=== PATIENT | male | born 1965 | race Caucasian/White ===

== ENCOUNTER → 2019-01-06 | Outpatient (CLI) | payer OTHER ==
--- NOTE | 2019-01-10 09:40 | PE ---
Nuclear medicine PET/CT HISTORY: Lung carcinoma, subsequent Patient received 10.8 mCi F-18 FDG intravenously in delayed scanning was performed from the skull bas e to the mid thighs. Localization and attenuation correction CT scan was performed. Correlation to prior nuclear medicine PET/CT 08/08/2018 from outside institution Neck and chest: There is no evident cervical, supraclavicular, mediastinal, axillary adenopathy. Righ t lung mass extends from the right hilum to the pleural surface and shows hypermetabolic uptake perip herally in a similar distribution to prior exam, SUV 4.3 as compared to prior when SUV was 10. There is increased AP diameter of approximately 6.6 cm as compared to prior exam 6.2 cm. There is some asso ciated calcification in the right hilar region as well as in the right lung mass. No pleural or peric ardial effusion. Parenchymal bands are noted, subpleural scarring suspected along the right chest wal l inferior to the mass as on prior exam. There is volume loss in the right hemithorax. Apical loculat ed effusion suspected on the right is stable. ABDOMEN: No evident liver mass or suspicious hypermetabolic uptake. No retroperitoneal adenopathy. No adrenal mass. Small umbilical hernia contains fat. Prostate is enlarged. No pelvic adenopathy. Osseous structures are stable, no suspicious hypermetabolic uptake. IMPRESSION: There has been some progression in the size of the lung mass.
== END | disposition home or self-care (01) ==
LOC: RADPETMAIN 11:29
PROVIDERS: ATTEND Internal Medicine Hematology & Oncology
DX: C34.81 Malignant neoplasm of overlapping sites of right bronchus and lung (principal); R91.8 Other nonspecific abnormal finding of lung field
CPT/HCPCS: 78815; A9552

== ENCOUNTER → 2020-09-19 | Outpatient (CLI) | payer MEDICARE, OTHER ==
--- NOTE | 2020-09-26 13:05 | PE ---
EXAMINATION TYPE: PET CT fusion skull to thigh DATE OF EXAM: 09/19/2020 COMPARISON: CT abdomen and pelvis 08/09/2015 Prior PET/CT: 01/06/2019 HISTORY: Lung cancer TECHNIQUE: Following the intravenous administration of 12.92 mCi of F-18 FDG, whole body images are performed from the skull base to the midthigh. Images are reviewed on the computer in the coronal, a xial, and sagittal planes. Reconstructed rotating images are created on independent workstation and reviewed on the computer. A localization and attenuation correction CT is performed in conjunction with the PET scan. DLP: 407.65 mGycm SCAN: Subsequent Blood glucose: 90 mg/dL Average Mediastinum SUV: 1.73 Average Liver SUV: 1.96 FINDINGS: NECK: There is vague increased signal within the right tonsillar pillar with an SUV value 2.23. Infl ammatory change could be considered. There is intense uptake within the vocal cord level posterior larynx. This has an SUV value of 5.5 to . This could be related to phonation. However, direct visualization is recommended. Attention posteri or right vocal cord region. THORAX: There is intense activity within the mass within the right lung field. This has an SUV value 10.21. Image 88. The inferior portion of this mass extends towards the diaphragm and has an SUV value of 9.43. Image 116. There is a intense uptake within a left infrahilar lymph node. Series 103. This has an SUV value of 5 .71 image 102. A right infrahilar focus radiotracer has an SUV value of 6.24. Image 119. There is intense activity within the posterior cardiac mass within the right lower lung field. Image 111. This has an SUV value of 4.99. Smaller masses adjacent to the right diaphragm, image 126, have S UV values of 5.96 anteriorly and more posterior laterally 5.63. There is a left lung nodule measuring 7.24 SUV within the anterior lingula. Image 127. ABDOMEN: No abnormal uptake PELVIS: No abnormal uptake OSSEOUS STRUCTURES: No abnormal uptake LOCALIZATION CT: The thyroid is visualized and is normal. There is fluid within the superior right th orax. There is shift of the mediastinum to the right postsurgical changes. The adrenal glands appear normal. No abnormal uptake or enlargement is evident. COMPARISON: Small amount of radiotracer is present adjacent to the mediastinum on the right previous examination. The uptake within the mass, the nodules, and infrahilar adenopathy is new. IMPRESSION: 1. Recurrent intense uptake within the right lung mass compatible with recurrence. 2. Multiple new nodules in infrahilar adenopathy with uptake compatible with metastatic disease. 3. Some intense uptake in the posterior right vocal cord region could be related to formation or neop lasm. 4. Mild uptake within the right tonsillar pillar more likely related to inflammatory change. Direct v isualization can be performed.
== END | disposition home or self-care (01) ==
LOC: RADPETMAIN 09:51
PROVIDERS: ATTEND Internal Medicine Hematology & Oncology
DX: C34.91 Malignant neoplasm of unspecified part of right bronchus or lung (principal); R91.8 Other nonspecific abnormal finding of lung field; R59.0 Localized enlarged lymph nodes
CPT/HCPCS: 78815; A9552

== ENCOUNTER → 2020-09-20 | Outpatient (CLI) | payer MEDICARE, OTHER ==
--- NOTE | 2020-09-20 11:19 | MR ---
EXAMINATION TYPE: MR brain wo/w con DATE OF EXAM: 09/20/2020 COMPARISON: None HISTORY: Lung cancer, evaluate for metastatic disease. TECHNIQUE: Multiplanar, multisequence images of the brain and brainstem is performed without and with IV contras t, utilizing 7.5 mL intravenous Gadavist . FINDINGS bone The ventricles, basal cisterns and sulci over the convexities are mildly prominent consistent with mi ld atrophy. There is mild abnormal increased signal intensity in the white matter both cerebral hemispheres and i n the brainstem consistent with chronic ischemic demyelination. Based on diffusion-weighted imaging, there is no acute ischemic event. Following contrast administration there is no pathological enhancement throughout the brain parenchym a. The posterior fossa, including the brainstem, fourth ventricle and cerebellar pontine angles appear n ormal The intraorbital contents appear normal and symmetric. T2-weighted images midline structures craniovertebral junction relationships are normal. IMPRESSION: No evidence of metastatic disease to the brain. Chronic changes as described above.
== END | disposition home or self-care (01) ==
LOC: RADMRIMAIN 09:50
PROVIDERS: ATTEND Internal Medicine Hematology & Oncology
DX: C34.91 Malignant neoplasm of unspecified part of right bronchus or lung (principal)
CPT/HCPCS: 70553; A9585

== ENCOUNTER 2020-10-29 15:49 | Inpatient (IN) | payer MEDICARE, OTHER ==
[2020-10-29] MEDS ORDERED: CEFEPIME 2 GM in SODIUM CHLORIDE 0.9% 100 ML IVPB STA (16:15)
[2020-10-29] MEDS ORDERED: VANCOMYCIN IV PER PHARMACY 1 EACH MISC MISCELLANE PRN (16:15)
--- NOTE | 2020-10-29 16:27 | ED ---
General Adult HPI - General Chief complaint: Fever Stated complaint: fever-sent by [facility] Time Seen by Provider: 10/29/20 15:50 Source: patient, RN notes reviewed, old records reviewed Mode of arrival: ambulatory Limitations: no limitations - History of Present Illness Initial comments: This is a 55-year-old male presents to the emergency department with a past medical history significant of lung cancer according to the oncologist he's had a reoccurrence and stage IV lung cancer currently. Patient is getting chemotherapy and has been having fevers for the last 2 days so the oncologist like the patient admitted and started on antibiotics. Patient states he feels no different than he has been feeling. Patient denies any significant cough. Patient denies any difficulty breathing shortness of breath per patient denies any chest pain palpitations. Patient denies any abdominal pain patient denies nausea vomiting diarrhea per patient denies any dysuria hematuria urinary frequency. Patient denies any skin lesions rashes or areas of fluctuance. - Related Data Home Medications Medication Instructions Recorded Confirmed Albuterol Sulfate [Ventolin HFA] 1 puff INHALATION RT-Q4H PRN 10/29/20 10/29/20 Fluticasone Propionate [Flovent 1 puff INHALATION RT-BID 10/29/20 10/29/20 Hfa 220 mcg] Allergies Allergy/AdvReac Type Severity Reaction Status Date / Time No Known Allergies Allergy Verified 10/29/20 17:28 Review of Systems ROS Statement: Those systems with pertinent positive or pertinent negative responses have been documented in the HPI. ROS Other: All systems not noted in ROS Statement are negative. Past Medical History Past Medical History: Cancer Additional Past Medical History / Comment(s): lung cancer History of Any Multi-Drug Resistant Organisms: None Reported Past Surgical History: Hernia Repair Additional Past Surgical History / Comment(s): Inguinal Hernia Past Anesthesia/Blood Transfusion Reactions: No Reported Reaction Past Psychological History: No Psychological Hx Reported Smoking Status: Current every day smoker Past Alcohol Use History: Occasional Past Drug Use History: None Reported - Past Family History Father Family Medical History: Unable to Obtain Additional Family Medical History / Comment(s): pt was adopted, family history unknown General Exam - General Exam Comments Initial Comments: GENERAL: Patient is well-developed and well-nourished. Patient is nontoxic and well- hydrated and is in no acute distress. ENT: Neck is soft and supple. No significant lymphadenopathy is noted. Oropharynx is clear. Moist mucous membranes. Neck has full range of motion without eliciting any pain. EYES: The sclera were anicteric and conjunctiva were pink and moist. Extraocular movements were intact and pupils were equal round and reactive to light. Eyelids were unremarkable. PULMONARY: Unlabored respirations. Good breath sounds bilaterally. No audible rales rhonchi or wheezing was noted. CARDIOVASCULAR: There is a regular rate and rhythm without any murmurs gallops or rubs. ABDOMEN: Soft and nontender with normal bowel sounds. SKIN: Skin is clear with no lesions or rashes and otherwise unremarkable. NEUROLOGIC: Patient is alert and oriented x3. Cranial nerves II through XII are grossly intact. Motor and sensory are also intact. Normal speech, volume and content. Symmetrical smile. MUSCULOSKELETAL: Normal extremities with adequate strength and full range of motion. No lower extremity swelling or edema. No calf tenderness. LYMPHATICS: No significant lymphadenopathy is noted PSYCHIATRIC: Normal psychiatric evaluation. Limitations: no limitations Course Vital Signs 10/29/20 15:51 Temperature 97.3 F L Pulse Rate 110 H Respiratory 20 Rate Blood Pressure 117/76 O2 Sat by Pulse 100 Oximetry Medical Decision Making - Medical Decision Making EKG shows sinus tachycardia with PVCs at 109 bpm TN interval is on a 34 QRS is 84 Q-T intervals 328 QTC is 441. EKG shows no ST segment elevation or depression. Chest x-ray shows findings on the right side related to partial pneumonectomy [facility] the patient I consulted oncology. Patient was started on vancomycin cefepime - Lab Data Result diagrams: 10/29/20 16:38 10/29/20 16:38 Lab Results 10/29/20 10/29/20 10/29/20 Range/Units 16:38 16:38 16:38 WBC 0.8 L* (3.8-10.6) k/uL RBC 4.09 L (4.30-5.90) m/uL Hgb 10.9 L (13.0-17.5) gm/dL Hct 31.8 L (39.0-53.0) % MCV 77.7 L (80.0-100.0) fL MCH 26.6 (25.0-35.0) pg MCHC 34.2 (31.0-37.0) g/dL RDW 17.0 H (11.5-15.5) % Plt Count 154 (150-450) k/uL MPV 7.7 Differential Comment Manual Slide Review Performed Anisocytosis Slight Microcytosis Slight PT 10.3 (9.0-12.0) sec INR 1.0 (<1.2) APTT 24.4 (22.0-30.0) sec Sodium 136 L (137-145) mmol/L Potassium 4.7 (3.5-5.1) mmol/L Chloride 96 L (98-107) mmol/L Carbon Dioxide 31 H (22-30) mmol/L Anion Gap 9 mmol/L BUN 15 (9-20) mg/dL Creatinine 1.32 H (0.66-1.25) mg/dL Est GFR (CKD-EPI)AfAm 71 (>60 ml/min/1.73 sqM) Est GFR (CKD-EPI)NonAf 61 (>60 ml/min/1.73 sqM) Glucose 197 H (74-99) mg/dL Plasma Lactic Acid Leon (0.7-2.0) mmol/L Calcium 9.3 (8.4-10.2) mg/dL Total Bilirubin 0.6 (0.2-1.3) mg/dL AST 15 L (17-59) U/L ALT 9 (4-49) U/L Alkaline Phosphatase 73 (38-126) U/L Total Protein 6.6 (6.3-8.2) g/dL Albumin 3.6 (3.5-5.0) g/dL 10/29/20 Range/Units 16:38 WBC (3.8-10.6) k/uL RBC (4.30-5.90) m/uL Hgb (13.0-17.5) gm/dL Hct (39.0-53.0) % MCV (80.0-100.0) fL MCH (25.0-35.0) pg MCHC (31.0-37.0) g/dL RDW (11.5-15.5) % Plt Count (150-450) k/uL MPV Differential Comment Manual Slide Review Anisocytosis Microcytosis PT (9.0-12.0) sec INR (<1.2) APTT (22.0-30.0) sec Sodium (137-145) mmol/L Potassium (3.5-5.1) mmol/L Chloride (98-107) mmol/L Carbon Dioxide (22-30) mmol/L Anion Gap mmol/L BUN (9-20) mg/dL Creatinine (0.66-1.25) mg/dL Est GFR (CKD-EPI)AfAm (>60 ml/min/1.73 sqM) Est GFR (CKD-EPI)NonAf (>60 ml/min/1.73 sqM) Glucose (74-99) mg/dL Plasma Lactic Acid Leon 2.4 H* (0.7-2.0) mmol/L Calcium (8.4-10.2) mg/dL Total Bilirubin (0.2-1.3) mg/dL AST (17-59) U/L ALT (4-49) U/L Alkaline Phosphatase (38-126) U/L Total Protein (6.3-8.2) g/dL Albumin (3.5-5.0) g/dL Critical Care Time Critical Care Time: Yes Total Critical Care Time: 35 Disposition Clinical Impression: Neutropenic fever, Lung cancer Disposition: ADMITTED IP TO THIS HOSP Referrals: Bright Martínez MD [Primary Care Provider] - 1-2 days Time of Disposition: 17:58
[2020-10-29] MEDS: SODIUM CHLORIDE 0.9% 500 ML 500 ML IV SCH ×2 (16:58→17:30)
[2020-10-29] MEDS ORDERED: VANCOMYCIN 1,500 MG in SODIUM CHLORIDE 0.9% 250 ML IVPB ONE (17:00)
[2020-10-29 17:06] LABS: Partial Thromboplastin Time 24.4 sec (22.0-30.0); Prothrombin Time 10.3 sec (9.0-12.0)
[2020-10-29 17:08] LABS: Albumin 3.6 g/dL (3.5-5.0); Calcium 9.3 mg/dL (8.4-10.2); Potassium 4.7 mmol/L (3.5-5.1); Total Bilirubin 0.6 mg/dL (0.2-1.3); Total Protein 6.6 g/dL (6.3-8.2)
[2020-10-29 17:19] LABS: Anisocytosis Slight; HCT 31.8 % (39.0-53.0); HGB 10.9 gm/dL (13.0-17.5); MCH 26.6 pg (25.0-35.0); MCHC 34.2 g/dL (31.0-37.0); MCV 77.7 fL (80.0-100.0); Mean Platelet Volume 7.7; Microcytosis Slight; Platelet Count 154 k/uL (150-450); RBC 4.09 m/uL (4.30-5.90)
[2020-10-29 17:25] LABS: WBC 0.8 k/uL (3.8-10.6)
--- NOTE | 2020-10-29 17:30 | XR ---
EXAMINATION TYPE: XR chest 1V portable DATE OF EXAM: 10/29/2020 COMPARISON: 08/09/2015 HISTORY: Pneumonia. Short of breath. TECHNIQUE: Single view FINDINGS: Heart and mediastinum are deviated to the right side. There is extensive opacification righ t hemithorax. There is some nodular infiltrate left lower lobe. There is no definite pleural fluid. IMPRESSION: Volume loss on the right side could relate to partial pneumonectomy with extensive pleura l thickening and consolidation. There is some new nodular infiltrate left lower lobe. Recurrent tumor is possible.
[2020-10-29] MEDS ORDERED: SODIUM CHLORIDE 0.9% 1,000 ML IV ONE (17:59)
[2020-10-29 19:23] LABS: Appearance,Urine Clear (Clear); Bilirubin,Urine Negative (Negative); Blood,Urine Negative (Negative); Color,Urine Yellow; Glucose,Urine (UA) 3+ (Negative); Hyaline Casts,Urine 44 /lpf (0-2); Ketones,Urine Negative (Negative); Leukocyte Esterase,Urine Negative (Negative); Mucus,Urine Occasional /hpf; Nitrite,Urine Negative (Negative); Protein,Urine 1+ (Negative); RBC,Urine <1 /hpf (0-5); Squamous Epithelial Cell,Urine <1 /hpf (0-4); WBC,Urine 2 /hpf (0-5)
[2020-10-30] MEDS: CEFEPIME 2 GM in SODIUM CHLORIDE 0.9% 100 ML IVPB SCH ×3 (00:39→16:20)
[2020-10-30] MEDS: VANCOMYCIN 1,250 MG in SODIUM CHLORIDE 0.9% 250 ML IVPB SCH ×2 (05:02→17:01)
[2020-10-30 07:43] LABS: African American GFR (CKD) 88 (>60 ml/min/1.73 sqM); Anion Gap 9 mmol/L; Blood Urea Nitrogen 11 mg/dL (9-20); Calcium 8.3 mg/dL (8.4-10.2); Carbon Dioxide 28 mmol/L (22-30); Chloride 101 mmol/L (98-107); Glucose 117 mg/dL (74-99); Non-African American GFR(CKD) 76 (>60 ml/min/1.73 sqM); Potassium 4.5 mmol/L (3.5-5.1); Sodium 138 mmol/L (137-145)
[2020-10-30] MEDS: FILGRASTIM-SNDZ 480 MCG/0.8 ML SYRINGE SQ SCH (10:16)
[2020-10-30] MEDS: IPRATROPIUM-ALBUTEROL 3 ML NEB INHALATION SCH ×3 (11:38→20:28)
[2020-10-30] MEDS: guaiFENesin 600 MG TABLET.ER PO SCH ×3 (11:43→20:10)
[2020-10-30] MEDS: ENOXAPARIN 40 MG/0.4 ML SYRINGE SQ SCH (11:43)
[2020-10-30] MEDS ORDERED: ACETAMINOPHEN TAB 325 MG TAB PO PRN (12:43)
--- NOTE | 2020-10-30 15:48 | P.CONS ---
History of Present Illness - Reason for Consult Consult date: 10/30/20 Neutropenic fever Requesting physician: Antelmo Louis - Chief Complaint Fever, tachycardia, on chemotherapy for lung cancer - History of Present Illness Mr. Skelton is a pleasant pt of Dr. August, initially seen in consult at [facility] on 08/08/15 when he presented with mid chest pain, worsened with inspiration, progressive over 2 day, SOB on exertion since late 05/04. Chest CT revealed a large mass occupying about the upper 2/3 of the right lung field. He had a bronchoscopic biopsy, positive for malignancy. CT head was negative. Staging PET revealed uptake in the mass, but not elsewhere. The pathology, after consultation at the [facility], was read as small cell llung cancer. He was seen for his 1st OV on 08/21/15. He was started on METAL BONDING HELPER 16 and Cisplatin for 2 cycles for cytoreduction then addition of XRT. Completed 4 cycles of chemo by 11/06/15 and RT around 10/30/15. Treatment f/u CT showed a very good partial radiologic response. Prophylactic cranial irradiation 04/06/16. He was seen back at his own request on 04/08/16 as he had notice a tender lump under his rt nipple 2 days prior. US guided biopsy on 04/13/16, revealing benign gynocomastia. He completed PCI on 04/19/16. He missed appts after 05/05 due to insurance issues. He re-established f/u in 10/04. CT 07/08 showed possible increase in size of the RUL opacity. He was seen by Rad Onc and PET ordered. This showed peripheral rim uptake with central necrosis, with uptake less then prior study. It could not be determined if this represented progression vs scarring with breakdown and residual inflammation. He was thus continued on observation. PET 01/05 showed slight increase in size of the RUL opacity, but again peripheral uptake only, with actually decreased SUV. Repeat CT scan 04/07, which was personally reviewed by Radiation Oncology and was felt to show minimal, if any, change. Continued observation was recommended. Did well until scan 10/07 showed development of a cavitary lesion in the right upper lobe with an air-fluid level. Scans were reviewed with Radiation Oncology, and Pulmonary medicine. It was felt that this most likely represented an abscess with cavity due to breakdown of previously treated tissue. He was treated with antibiotics for several weeks. CT 08/10 appeared to show progression, with increasing density in the right mid to upper lung, as well as nodules in both lungs. 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 PET scan showed uptake in the right lung mass, as well as infrahilar lymph nodes, right lung and left lung nodules. There was also low level uptake in the right vocal cord and oropharynx which was felt to be nonspecific. Started METAL BONDING HELPER-16, carboplatin, and tecentriq on 10/14/20 and is status post 1 cycle. He was in ofc for ff/u and reported at least 3 episodes of fever with chills in the previous 24 hours, as high as 101.5 on 10/28/20. He tachycardic with an ANC of 900. Sent to hospital for neutropenic fever. When seen today no fever since admit, (RN did report 100.9F later in the morning), no oral irritation, productive cough, chest pain, N,V, diarrhea, constipation, he can tolerate oral intake, no swelling in legs, pain or unusual energy changes. Review of Systems 14 point review of systems is negative except as stated in HPI Past Medical History Past Medical History: Cancer Additional Past Medical History / Comment(s): lung cancer History of Any Multi-Drug Resistant Organisms: None Reported Past Surgical History: Hernia Repair Additional Past Surgical History / Comment(s): Inguinal Hernia Past Anesthesia/Blood Transfusion Reactions: No Reported Reaction Past Psychological History: No Psychological Hx Reported Smoking Status: Current every day smoker Past Alcohol Use History: Occasional Past Drug Use History: None Reported - Past Family History Father Family Medical History: Unable to Obtain Additional Family Medical History / Comment(s): pt was adopted, family history unknown Medications and Allergies Home Medications Medication Instructions Recorded Confirmed Type Albuterol Sulfate [Ventolin HFA] 1 puff INHALATION RT-Q4H PRN 10/29/20 10/29/20 History Fluticasone Propionate [Flovent 1 puff INHALATION RT-BID 10/29/20 10/29/20 History Hfa 220 mcg] Allergies Allergy/AdvReac Type Severity Reaction Status Date / Time No Known Allergies Allergy Verified 10/29/20 17:28 Physical Exam Vitals: Vital Signs Temp Pulse Pulse Resp BP BP Pulse Ox 10/30/20 08:00 106 H 18 10/30/20 05:02 98.7 F 10/30/20 04:00 100.1 F H 108 H 18 104/64 98 10/29/20 20:00 110 H 18 10/29/20 18:18 99.6 F 130 H 18 105/70 94 L 10/29/20 18:09 97.7 F 106 H 16 122/79 98 10/29/20 18:00 16 10/29/20 15:51 97.3 F L 110 H 20 117/76 100 Intake and Output 10/29/20 10/30/20 10/30/20 22:59 06:59 14:59 Intake Total 240 700 Balance 240 700 Intake: Intake, IV Titration 700 Amount Cefepime 2 gm In Sodium 100 Chloride 0.9% 100 ml @ 200 mls/hr IVPB ONCE STA Rx#:[id number] Sodium Chloride 0.9% 1, 350 000 ml @ 50 mls/hr IV . Q20H ONE Rx#:[id number] Vancomycin 1,500 mg In 250 Sodium Chloride 0.9% 250 ml @ 125 mls/hr IVPB ONCE ONE Rx#:[id number] Oral 240 Other: Voiding Method Toilet Toilet Urinal Urinal # Voids 4 Weight 78.018 kg - Constitutional General appearance: average body habitus, cooperative, no acute distress - EENT Eyes: anicteric sclerae, EOMI ENT: hearing grossly normal, normal oropharynx - Neck Neck: no lymphadenopathy - Respiratory Respiratory: bilateral: CTA - Cardiovascular Rhythm: other (Tachycardia, regular rhythm) Heart sounds: normal: S1, S2 Abnormal Heart Sounds: no systolic murmur, no diastolic murmur, no rub, no S3 Gallop, no S4 Gallop, no click, no other - Gastrointestinal General gastrointestinal: no absent bowel sounds, no decreased bowel sounds, no distended, no hepatomegaly, no hyperactive bowel sounds, normal bowel sounds, no organomegaly, no rigid, no scaphoid, soft, no splenomegaly, no tenderness, no umbilical hernia, no ventral hernia - Integumentary Integumentary: normal - Neurologic Neurologic: CNII-XII intact - Musculoskeletal Musculoskeletal: strength equal bilaterally - Psychiatric Psychiatric: A&O x's 3, appropriate affect, intact judgment & insight Results CBC & Chem 7: 10/29/20 16:38 05/13/21 06:56 Labs: Abnormal Lab Results - Last 24 Hours (Table) 10/29/20 10/29/20 10/29/20 Range/Units 16:38 16:38 16:38 WBC 0.8 L* (3.8-10.6) k/uL RBC 4.09 L (4.30-5.90) m/uL Hgb 10.9 L (13.0-17.5) gm/dL Hct 31.8 L (39.0-53.0) % MCV 77.7 L (80.0-100.0) fL RDW 17.0 H (11.5-15.5) % Sodium 136 L (137-145) mmol/L Chloride 96 L (98-107) mmol/L Carbon Dioxide 31 H (22-30) mmol/L Creatinine 1.32 H (0.66-1.25) mg/dL Glucose 197 H (74-99) mg/dL Plasma Lactic Acid Leon (0.7-2.0) mmol/L Calcium (8.4-10.2) mg/dL AST 15 L (17-59) U/L Urine Protein 1+ H (Negative) Urine Glucose (UA) 3+ H (Negative) Hyaline Casts 44 H (0-2) /lpf Urine Mucus Occasional H (None) /hpf 10/29/20 10/30/20 Range/Units 16:38 06:56 WBC (3.8-10.6) k/uL RBC (4.30-5.90) m/uL Hgb (13.0-17.5) gm/dL Hct (39.0-53.0) % MCV (80.0-100.0) fL RDW (11.5-15.5) % Sodium (137-145) mmol/L Chloride (98-107) mmol/L Carbon Dioxide (22-30) mmol/L Creatinine (0.66-1.25) mg/dL Glucose 117 H (74-99) mg/dL Plasma Lactic Acid Leon 2.4 H* (0.7-2.0) mmol/L Calcium 8.3 L (8.4-10.2) mg/dL AST (17-59) U/L Urine Protein (Negative) Urine Glucose (UA) (Negative) Hyaline Casts (0-2) /lpf Urine Mucus (None) /hpf Chest x-ray: report reviewed (Nodular infiltrate in the left lower lobe) Assessment and Plan (1) Neutropenic fever Narrative/Plan: Pancultures ordered, empiric antibiotics started. GCSF started. IV fluids, diet as tolerated unless abd pain GI/DVT prophylaxis Temp monitoring Pt told cultures have to result and no fever for >24 hours before he can be discharged. G-CSF will be added to patient's treatment regimen Current Visit: Yes Status: Acute Priority: High Code(s): D70.9 - NEUTROPENIA, UNSPECIFIED; R50.81 - FEVER PRESENTING WITH CONDITIONS CLASSIFIED ELSEWHERE SNOMED Code(s): 130529688 Plan: Doctor attests: I performed a history and physical examination of this patient, developed impression and plan of care. Discussed with dictator. I agree with dictators note, documented as a scribe.
[2020-10-30] MEDS ORDERED: MAGNESIUM HYDROXIDE 2,400 MG/10 ML CUP PO PRN (15:49)
[2020-10-30] MEDS: PANTOPRAZOLE 40 MG/10 ML VIAL IVP SCH (17:01)
[2020-10-30] MEDS: SALT AND SODA MOUTHWASH 1,000 ML PO SCH ×2 (17:02→20:12)
--- NOTE | 2020-10-30 17:49 | P.HPIM ---
History of Present Illness H&P Date: 10/30/20 Chief Complaint: Fever History of presenting complaint: This is a pleasant 55-year-old patient of Dr. Mak Martínez. Also being followed by oncologist Dr. August. As per oncology notes: Mr. Skelton is a pleasant pt of Dr. August, initially seen in consult at [facility] on 08/08/15 when he presented with mid chest pain, worsened with inspiration, progressive over 2 day, SOB on exertion since late 05/04. Chest CT revealed a large mass occupying about the upper 2/3 of the right lung field. He had a bronchoscopic biopsy, positive for malignancy. CT head was negative. Staging PET revealed uptake in the mass, but not elsewhere. The pathology, after consultation at the [facility], was read as small cell llung cancer. He was seen for his 1st OV on 08/21/15. He was started on BICYCLE TECHNICIAN 16 and Cisplatin for 2 cycles for cytoreduction then addition of XRT. Completed 4 cycles of chemo by 11/06/15 and RT around 10/30/15. Treatment f/u CT showed a very good partial radiologic response. Prophylactic cranial irradiation 04/06/16. He was seen back at his own request on 04/08/16 as he had notice a tender lump under his rt nipple 2 days prior. US guided biopsy on 04/13/16, revealing benign gynocomastia. He completed PCI on 04/19/16. He missed appts after 05/05 due to insurance issues. He re-established f/u in 10/04. CT 07/08 showed possible increase in size of the RUL opacity. He was seen by Rad Onc and PET ordered. This showed peripheral rim uptake with central necrosis, with uptake less then prior study. It could not be determined if this represented progression vs scarring with breakdown and residual inflammation. He was thus continued on observation. PET 01/05 showed slight increase in size of the RUL opacity, but again peripheral uptake only, with actually decreased SUV. Repeat CT scan 04/07, which was personally reviewed by Radiation Oncology and was felt to show minimal, if any, change. Continued observation was recommended. Did well until scan 10/07 showed development of a cavitary lesion in the right upper lobe with an air-fluid level. Scans were reviewed with Radiation Oncology, and Pulmonary medicine. It was felt that this most likely represented an abscess with cavity due to breakdown of previously treated tissue. He was treated with antibiotics for several we eks. CT 08/10 appeared to show progression, with increasing density in the right mid to upper lung, as well as nodules in both lungs. 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 PET scan showed uptake in the right lung mass, as well as i nfrahilar lymph nodes, right lung and left lung nodules. There was also low level uptake in the right vocal cord and oropharynx which was felt to be nonspecific. Started BICYCLE TECHNICIAN-16, carboplatin, and tecentriq on 10/14/20 and is status post 1 cycle. He was in office for ff/u and reported at least 3 episodes of fever with chills in the previous 24 hours, as high as 101.5 on 10/28/20. He tachycardic with an ANC of 900. Sent to hospital for neutropenic fever. Additionally: Patient has a cough. In addition sputum. Appetite is okay. No chills. Bowel movement frequency variable. Has been having wheezing. Review of systems: GEN.: Fever, tired EYES: None HEENT: None NECK: None RESPIRATORY: [As above CARDIOVASCULAR: None GASTROINTESTINAL: None GENITOURINARY: None MUSCULOSKELETAL: None LYMPHATICS: None HEMATOLOGICAL: None PSYCHIATRY: None NEUROLOGICAL: None Past medical history to include: Lung cancer, nicotine dependent Social history: Lives alone. 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 No alcohol. Family history: Patient is adopted Physical examination: VITAL SIGNS: 100.1, 108, 18, 104/64, 98% room air GENERAL: BMI 25.4, laying in bed, bit tired. EYES: Pupils equal. Conjunctiva normal. HEENT: External appearance of nose and ears normal, oral cavity grossly normal. NECK: JVD not raised; masses not palpable. HEART: First and second heart sounds are normal; no edema. LUNGS: Respiratory rate increased; decreased breath sounds with expiratory wheezing. ABDOMEN: Soft, nontender, liver spleen not palpable, no masses palpable. PSYCH: Alert and oriented x3; mood and affect normal. NEUROLOGICAL: Cranial nerves grossly intact; no facial asymmetry, power and sensation grossly intact. LYMPHATICS: No lymph nodes palpable in the axilla and neck INVESTIGATIONS, reviewed in the clinical context: WBC 0.8 hemoglobin 10.9 platelets 1544.7 creatinine 1.3 to Lactic acid 2.4 UA negative for nitrites and leukoesterase Coronavirus [PCR]-not detected EKG tracing personally reviewed by me-normal sinus rhythm, sinus tachycardia, PVC Chest x-ray film personally reviewed by me-trachea port to the right. Prerenal thickening consolidation. 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 Inhaled steroids -Bicytopenia from chemotherapy Started on G-CSF. Follow labs -Acute kidney injury, likely from ATN IV fluids. Follow BMP Care was discussed with the patient. Oncology consulted. Increase IV fluids. Antibiotics include cefepime and vancomycin. Consult pulmonary. Past Medical History Past Medical History: Cancer Additional Past Medical History / Comment(s): lung cancer History of Any Multi-Drug Resistant Organisms: None Reported Past Surgical History: Hernia Repair Additional Past Surgical History / Comment(s): Inguinal Hernia Past Anesthesia/Blood Transfusion Reactions: No Reported Reaction Past Psychological History: No Psychological Hx Reported Smoking Status: Current every day smoker Past Alcohol Use History: Occasional Past Drug Use History: None Reported - Past Family History Father Family Medical History: Unable to Obtain Additional Family Medical History / Comment(s): pt was adopted, family history unknown Medications and Allergies Home Medications Medication Instructions Recorded Confirmed Type Albuterol Sulfate [Ventolin HFA] 1 puff INHALATION RT-Q4H PRN 10/29/20 10/29/20 History Fluticasone Propionate [Flovent 1 puff INHALATION RT-BID 10/29/20 10/29/20 History Hfa 220 mcg] Allergies Allergy/AdvReac Type Severity Reaction Status Date / Time No Known Allergies Allergy Verified 10/29/20 17:28 Physical Exam Vitals: Vital Signs Temp Pulse Pulse Resp BP BP Pulse Ox 10/30/20 08:00 106 H 18 10/30/20 05:02 98.7 F 10/30/20 04:00 100.1 F H 108 H 18 104/64 98 10/29/20 20:00 110 H 18 10/29/20 18:18 99.6 F 130 H 18 105/70 94 L 10/29/20 18:09 97.7 F 106 H 16 122/79 98 10/29/20 18:00 16 10/29/20 15:51 97.3 F L 110 H 20 117/76 100 Intake and Output 10/29/20 10/30/20 10/30/20 22:59 06:59 14:59 Intake Total 240 700 Balance 240 700 Intake: Intake, IV Titration 700 Amount Cefepime 2 gm In Sodium 100 Chloride 0.9% 100 ml @ 200 mls/hr IVPB ONCE STA Rx#:[id number] Sodium Chloride 0.9% 1, 350 000 ml @ 50 mls/hr IV . Q20H ONE Rx#:[id number] Vancomycin 1,500 mg In 250 Sodium Chloride 0.9% 250 ml @ 125 mls/hr IVPB ONCE ONE Rx#:[id number] Oral 240 Other: Voiding Method Toilet Toilet Urinal Urinal # Voids 4 Weight 78.018 kg Results CBC & Chem 7: 10/29/20 16:38 10/30/20 06:56 Labs: Abnormal Lab Results - Last 24 Hours (Table) 10/29/20 10/29/20 10/29/20 Range/Units 16:38 16:38 16:38 WBC 0.8 L* (3.8-10.6) k/uL RBC 4.09 L (4.30-5.90) m/uL Hgb 10.9 L (13.0-17.5) gm/dL Hct 31.8 L (39.0-53.0) % MCV 77.7 L (80.0-100.0) fL RDW 17.0 H (11.5-15.5) % Sodium 136 L (137-145) mmol/L Chloride 96 L (98-107) mmol/L Carbon Dioxide 31 H (22-30) mmol/L Creatinine 1.32 H (0.66-1.25) mg/dL Glucose 197 H (74-99) mg/dL Plasma Lactic Acid Leon (0.7-2.0) mmol/L Calcium (8.4-10.2) mg/dL AST 15 L (17-59) U/L Urine Protein 1+ H (Negative) Urine Glucose (UA) 3+ H (Negative) Hyaline Casts 44 H (0-2) /lpf Urine Mucus Occasional H (None) /hpf 10/29/20 10/30/20 Range/Units 16:38 06:56 WBC (3.8-10.6) k/uL RBC (4.30-5.90) m/uL Hgb (13.0-17.5) gm/dL Hct (39.0-53.0) % MCV (80.0-100.0) fL RDW (11.5-15.5) % Sodium (137-145) mmol/L Chloride (98-107) mmol/L Carbon Dioxide (22-30) mmol/L Creatinine (0.66-1.25) mg/dL Glucose 117 H (74-99) mg/dL Plasma Lactic Acid Leon 2.4 H* (0.7-2.0) mmol/L Calcium 8.3 L (8.4-10.2) mg/dL AST (17-59) U/L Urine Protein (Negative) Urine Glucose (UA) (Negative) Hyaline Casts (0-2) /lpf Urine Mucus (None) /hpf Thrombosis Risk Factor Assmnt - Choose All That Apply Any of the Below Risk Factors Present?: No Each Risk Factor Represents 2 Points: Malignancy Thrombosis Risk Factor Assessment Total Risk Factor Score: 2 Thrombosis Risk Factor Assessment Level: Low Risk
[2020-10-30] MEDS: SODIUM CHLORIDE 0.9% 1,000 ML IV SCH (18:10)
[2020-10-30] MEDS: BUDESONIDE 0.5 MG/2 ML NEBU INHALATION SCH (20:28)
[2020-10-31] MEDS: CEFEPIME 2 GM in SODIUM CHLORIDE 0.9% 100 ML IVPB SCH ×4 (00:21→23:40)
[2020-10-31] MEDS: SALT AND SODA MOUTHWASH 1,000 ML PO SCH ×5 (00:25→20:06)
[2020-10-31] MEDS: SODIUM CHLORIDE 0.9% 1,000 ML IV SCH ×4 (04:15→20:05)
[2020-10-31] MEDS ORDERED: VANCOMYCIN TROUGH DUE 1 EACH MISC MISCELLANE ONE (05:00)
[2020-10-31] MEDS: VANCOMYCIN 1,250 MG in SODIUM CHLORIDE 0.9% 250 ML IVPB SCH ×2 (05:18→17:28)
[2020-10-31 05:44] LABS: African American GFR (CKD) 83 (>60 ml/min/1.73 sqM); Anion Gap 6 mmol/L; Blood Urea Nitrogen 10 mg/dL (9-20); Calcium 8.1 mg/dL (8.4-10.2); Carbon Dioxide 28 mmol/L (22-30); Chloride 98 mmol/L (98-107); Glucose 110 mg/dL (74-99); Non-African American GFR(CKD) 72 (>60 ml/min/1.73 sqM); Potassium 4.3 mmol/L (3.5-5.1); Sodium 132 mmol/L (137-145)
[2020-10-31 06:09] LABS: Anisocytosis Slight; HCT 28.1 % (39.0-53.0); Hypochromasia Slight; MCH 25.2 pg (25.0-35.0); MCHC 31.6 g/dL (31.0-37.0); MCV 79.8 fL (80.0-100.0); Mean Platelet Volume 7.8; Microcytosis Slight; Platelet Count 181 k/uL (150-450); RBC 3.52 m/uL (4.30-5.90); RDW 17.5 % (11.5-15.5)
[2020-10-31 06:15] LABS: WBC 1.1 k/uL (3.8-10.6)
[2020-10-31 06:16] LABS: HGB 8.9 gm/dL (13.0-17.5)
[2020-10-31] MEDS: FILGRASTIM-SNDZ 480 MCG/0.8 ML SYRINGE SQ SCH (07:32)
[2020-10-31] MEDS: ENOXAPARIN 40 MG/0.4 ML SYRINGE SQ SCH (07:32)
[2020-10-31] MEDS: PANTOPRAZOLE 40 MG/10 ML VIAL IVP SCH (07:32)
[2020-10-31] MEDS: guaiFENesin 600 MG TABLET.ER PO SCH ×4 (07:32→21:19)
[2020-10-31 07:48] LABS: Neutrophils % (M) 16 %
[2020-10-31 07:50] LABS: Band Neutrophils % 2 %; Eosinophils # (M) 0.01 k/uL (0-0.7); Lymphocytes # (M) 0.44 k/uL (1.0-4.8); Monocytes # (M) 0.41 k/uL (0-1.0)
[2020-10-31 07:51] LABS: Blast Cells # (M) 0.04 k/uL (0); Nucleated Red Blood Cells 0 /100 WBC (0-0); Total Cells Counted 100
[2020-10-31] MEDS: BUDESONIDE 0.5 MG/2 ML NEBU INHALATION SCH ×2 (08:29→20:33)
[2020-10-31] MEDS: IPRATROPIUM-ALBUTEROL 3 ML NEB INHALATION SCH ×4 (08:29→20:33)
--- NOTE | 2020-10-31 10:57 | P.CNPUL ---
History of Present Illness Consult date: 10/31/20 Reason for consult: dyspnea, cough, hypoxemia Chief complaint: spiking fever or shortness of breath History of present illness: this is a 55-year-old pleasant male well-known to me patient was diagnosed as small cell cancer in July 2014 with bronchoscopy and biopsy him astatus post chemotherapy patient has been in remission until developed lung abscess in 2019 which was treated successfully with the stabilization of weight as well as the respiratory symptoms however CT chest in July 2020 noted to have progression and density of right middle and upper lobe area with nodule formation status post bronchoscopy and lung biopsy, patient was diagnosed as combination of 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, PET scan showed uptake in right lung mass and infrahilar lymph nodes as well as the lung nodules, and has been started on the FLIGHT ENGINEER-16 carboplatin and tecentriq on 10/14/20 and is status post 1 cycle, patient was seen in the office with neutropenic fever with 101 admitted into the hospital for further evaluation patient does have productive cough denies any hemoptysis intermittent chills are present denies any chest pain nausea vomiting Review of Systems All systems: negative Past Medical History Past Medical History: Cancer Additional Past Medical History / Comment(s): lung cancer History of Any Multi-Drug Resistant Organisms: None Reported Past Surgical History: Hernia Repair Additional Past Surgical History / Comment(s): Inguinal Hernia Past Anesthesia/Blood Transfusion Reactions: No Reported Reaction Past Psychological History: No Psychological Hx Reported Smoking Status: Current every day smoker Past Alcohol Use History: Occasional Past Drug Use History: None Reported - Past Family History Father Family Medical History: Unable to Obtain Additional Family Medical History / Comment(s): pt was adopted, family history unknown Medications and Allergies Home Medications Medication Instructions Recorded Confirmed Type Albuterol Sulfate [Ventolin HFA] 1 puff INHALATION RT-Q4H PRN 10/29/20 10/29/20 History Fluticasone Propionate [Flovent 1 puff INHALATION RT-BID 10/29/20 10/29/20 History Hfa 220 mcg] Allergies Allergy/AdvReac Type Severity Reaction Status Date / Time No Known Allergies Allergy Verified 10/29/20 17:28 Physical Exam Vitals: Vital Signs Temp Pulse Pulse Resp BP Pulse Ox 10/31/20 08:37 88 10/31/20 08:29 88 10/31/20 04:50 99.7 F H 102 H 16 106/66 96 10/30/20 20:45 110 H 10/30/20 20:28 110 H 10/30/20 20:16 99 F 111 H 16 96/71 97 10/30/20 16:18 72 10/30/20 16:02 71 10/30/20 12:29 100.9 F H 122 H 14 119/64 95 10/30/20 11:47 77 10/30/20 11:40 76 Intake and Output 10/30/20 10/31/20 10/31/20 22:59 06:59 14:59 Intake Total 1490 Balance 1490 Intake: Intake, IV Titration 1490 Amount Cefepime 2 gm In Sodium 200 Chloride 0.9% 100 ml @ 25 mls/hr IVPB Q8HR JUDIT Rx# :[id number] Sodium Chloride 0.9% 1, 1040 000 ml @ 130 mls/hr IV . Q7H42M JUDIT Rx#:[id number] Vancomycin 1,250 mg In 250 Sodium Chloride 0.9% 250 ml @ 125 mls/hr IVPB Q12H JUDIT Rx#:[id number] Other: Voiding Method Toilet Urinal # Voids 3 - Constitutional General appearance: average body habitus, cooperative, disheveled, mild distress - EENT Eyes: EOMI, PERRLA ENT: normal oropharynx Ears: bilateral: normal - Neck Neck: normal ROM Carotids: bilateral: upstroke normal Thyroid: bilateral: normal size - Respiratory Respiratory: bilateral: diminished - Cardiovascular Rhythm: regular Heart sounds: normal: S1, S2 - Gastrointestinal General gastrointestinal: normal bowel sounds, soft - Neurologic Neurologic: CNII-XII intact - Musculoskeletal Musculoskeletal: gait normal, generalized weakness, strength equal bilaterally - Psychiatric Psychiatric: A&O x's 3, appropriate affect, intact judgment & insight Results - Laboratory Findings CBC and BMP: 10/31/20 04:58 10/31/20 04:58 PT/INR, D-dimer PT 10.3 sec (9.0-12.0) 10/29/20 16:38 INR 1.0 (<1.2) 10/29/20 16:38 Abnormal lab findings: Abnormal Labs 10/29/20 10/29/20 10/29/20 16:38 16:38 16:38 WBC 0.8 L* RBC 4.09 L Hgb 10.9 L Hct 31.8 L MCV 77.7 L RDW 17.0 H Blast Cells % Neutrophils # (Manual) Lymphocytes # (Manual) Blast Cells # (Man) Sodium 136 L Chloride 96 L Carbon Dioxide 31 H Creatinine 1.32 H Glucose 197 H Plasma Lactic Acid Leon Calcium AST 15 L Urine Protein 1+ H Urine Glucose (UA) 3+ H Hyaline Casts 44 H Urine Mucus Occasional H 10/29/20 10/30/20 10/31/20 16:38 06:56 04:58 WBC RBC Hgb Hct MCV RDW Blast Cells % Neutrophils # (Manual) Lymphocytes # (Manual) Blast Cells # (Man) Sodium 132 L Chloride Carbon Dioxide Creatinine Glucose 117 H 110 H Plasma Lactic Acid Leon 2.4 H* Calcium 8.3 L 8.1 L AST Urine Protein Urine Glucose (UA) Hyaline Casts Urine Mucus 10/31/20 04:58 WBC 1.1 L* RBC 3.52 L Hgb 8.9 L D Hct 28.1 L MCV 79.8 L RDW 17.5 H Blast Cells % 4 H* Neutrophils # (Manual) 0.10 L* Lymphocytes # (Manual) 0.44 L Blast Cells # (Man) 0.04 H Sodium Chloride Carbon Dioxide Creatinine Glucose Plasma Lactic Acid Leon Calcium AST Urine Protein Urine Glucose (UA) Hyaline Casts Urine Mucus - Diagnostic Findings Chest x-ray: report reviewed, image reviewed (3-year-old loss on the right side with pleural thickening and consolidation left lower lobe infiltrate) Assessment and Plan Assessment: 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
--- NOTE | 2020-10-31 13:32 | P.PN ---
Progress Note - Text Progress Note Date: 10/31/20 Chief Complaint: Fever History of presenting complaint: This is a pleasant 55-year-old patient of Dr. Mak Martínez. Also being followed by oncologist Dr. August. As per oncology notes: Mr. Skelton is a pleasant pt of Dr. Aguust, initially seen in consult at [facility] on 08/08/15 when he presented with mid chest pain, worsened with inspiration, progressive over 2 day, SOB on exertion since late 05/04. Chest CT revealed a large mass occupying about the upper 2/3 of the right lung field. He had a bronchoscopic biopsy, positive for malignancy. CT head was negative. Staging PET revealed uptake in the mass, but not elsewhere. The pathology, after consultation at the [facility], was read as small cell llung cancer. He was seen for his 1st OV on 08/21/15. He was started on MACHINE PECAN PICKER 16 and Cisplatin for 2 cycles for cytoreduction then addition of XRT. Completed 4 cycles of chemo by 11/06/15 and RT around 10/30/15. Treatment f/u CT showed a very good partial radiologic response. Prophylactic cranial irradiation 04/06/16. He was seen back at his own request on 04/08/16 as he had notice a tender lump under his rt nipple 2 days prior. US guided biopsy on 04/13/16, revealing benign gynocomastia. He completed PCI on 04/19/16. He missed appts after 05/05 due to insurance issues. He re-established f/u in 10/04. CT 07/08 showed possible increase in size of the RUL opacity. He was seen by Rad Onc and PET ordered. This showed peripheral rim uptake with central necrosis, with uptake less then prior study. It could not be determined if this represented progression vs scarring with breakdown and residual inflammation. He was thus continued on observation. PET 01/05 showed slight increase in size of the RUL opacity, but again peripheral uptake only, with actually decreased SUV. Repeat CT scan 04/07, which was personally reviewed by Radiation Oncology and was felt to show minimal, if any, change. Continued observation was recommended. Did well until scan 10/07 showed development of a cavitary lesion in the right upper lobe with an air-fluid level. Scans were reviewed with Radiation Oncology, and Pulmonary medicine. It was felt that this most likely represented an abscess with cavity due to breakdown of previously treated tissue. He was treated with antibiotics for several weeks. CT 08/10 appeared to show progression, with increasing density in the right mid to upper lung, as well as nodules in both lungs. 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 PET scan showed uptake in the right lung mass, as well as infrahilar lymph nodes, right lung and left lung nodules. There was also low level uptake in the right vocal cord and oropharynx which was felt to be nonspecific. Started MACHINE PECAN PICKER-16, carboplatin, and tecentriq on 10/14/20 and is status post 1 cycle. He was in office for ff/u and reported at least 3 episodes of fever with chills in the previous 24 hours, as high as 101.5 on 10/28/20. He tachycardic with an ANC of 900. Sent to hospital for neutropenic fever. Additionally: Patient has a cough. In addition sputum. Appetite is okay. No chills. Bowel movement frequency variable. Has been having wheezing. Admitted with pneumonia, COPD exacerbation, bicytopenia from chemotherapy. Started on IV cefepime, G-CSF, bronchitis steroids. Today: Feeling a bit better. Appetite is improving. Some cough. Some shortness of breath. Review of systems: Was done for constitutional, cardiovascular, GI, pulmonary. relevant finding as above Active Medications Acetaminophen (Acetaminophen Tab 325 Mg Tab) 650 mg PO Q6HR PRN PRN Reason: Fever and/ or Pain Last Admin: 10/30/20 12:56 Dose: 650 mg Documented by: Albuterol/Ipratropium (Ipratropium-Albuterol 3 Ml Neb) 3 ml INHALATION RT-QID [facility] Last Admin: 10/31/20 11:42 Dose: 3 ml Documented by: Budesonide (Budesonide 0.5 Mg/2 Ml Nebu) 0.5 mg INHALATION RT-BID [facility] Last Admin: 10/31/20 08:29 Dose: 0.5 mg Documented by: Enoxaparin Sodium (Enoxaparin 40 Mg/0.4 Ml Syringe) 40 mg SQ DAILY [facility] Last Admin: 10/31/20 07:32 Dose: 40 mg Documented by: Filgrastim-Sndz (Filgrastim-Sndz 480 Mcg/0.8 Ml Syringe) 480 mcg SQ DAILY [facility] Last Admin: 10/31/20 07:32 Dose: 480 mcg Documented by: Guaifenesin (Guaifenesin 600 Mg Tablet.Er) 600 mg PO QID [facility] Last Admin: 10/31/20 12:55 Dose: 600 mg Documented by: Cefepime HCl 2 gm/ Sodium (Chloride) 100 mls @ 25 mls/hr IVPB Q8HR [facility] Last Admin: 10/31/20 07:31 Dose: 25 mls/hr Documented by: Vancomycin HCl 1,250 mg/ (Sodium Chloride) 250 mls @ 125 mls/hr IVPB Q12H [facility] Last Admin: 10/31/20 05:18 Dose: 125 mls/hr Documented by: Sodium Chloride (Saline 0.9%) 1,000 mls @ 130 mls/hr IV .Q7H42M [facility] Last Admin: 10/31/20 10:35 Dose: Not Given Documented by: Magnesium Hydroxide (Magnesium Hydroxide 2,400 Mg/10 Ml Cup) 2,400 mg PO BID PRN PRN Reason: Constipation Pantoprazole Sodium (Pantoprazole 40 Mg Tablet) 40 mg PO AC-BRKFST [facility] Sodium Bicarbonate (Salt And Soda Mouthwash 1,000 Ml) 5 ml PO 5XD [facility] Last Admin: 10/31/20 10:48 Dose: 5 ml Documented by: Past medical history to include: Lung cancer, nicotine dependent Social history: Lives alone. 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 No alcohol. Family history: Patient is adopted Physical examination: VITAL SIGNS: 98.6, 101, 16, 140/75, 97% on room air GENERAL: Laying in bed, awake. EYES: Pupils equal. Conjunctiva normal. HEENT: External appearance of nose and ears normal, oral cavity grossly normal. NECK: JVD not raised; masses not palpable. HEART: First and second heart sounds are normal; no edema. LUNGS: Respiratory rate increased; decreased breath sounds. ABDOMEN: Soft, nontender, liver spleen not palpable, no masses palpable. PSYCH: Alert and oriented x3; mood and affect normal. INVESTIGATIONS, reviewed in the clinical context: October 31: WBC 1.1 hemoglobin 8.9 platelets 181 potassium 4.3 creatinine 1.16 sodium 132 WBC 0.8 hemoglobin 10.9 platelets 1544.7 creatinine 1.3 to Lactic acid 2.4 UA negative for nitrites and leukoesterase Coronavirus [PCR]-not detected EKG tracing personally reviewed by me-normal sinus rhythm, sinus tachycardia, PVC Chest x-ray film personally reviewed by me-trachea pulled to the right. co nsolidation. 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 Inhaled steroids -Bicytopenia from chemotherapy-slow improvement Started on G-CSF. Follow labs -Acute kidney injury, likely from ATN IV fluids. Follow BMP -Mild hyponatremia Encourage oral intake. Follow labs Care was discussed with the patient. Increase activity. Continue current medication treatment plan.
--- NOTE | 2020-10-31 16:59 | P.PN ---
Subjective Progress Note Date: 10/31/20 the patient reports no nnew complaints, and is in good spirits. Specifically, he denies any fever/chills/nausea/vomiting. He states that his baseline cough appears to be improved. Objective - Vital Signs Vital signs: Vital Signs Temp 98.6 F 10/31/20 12:50 Pulse 92 10/31/20 16:06 Resp 16 10/31/20 12:50 BP 114/75 10/31/20 12:50 Pulse Ox 97 10/31/20 12:50 Intake & Output 10/30/20 10/31/20 10/31/20 18:59 06:59 18:59 Intake Total 360 1490 240 Balance 360 1490 240 Intake: Intake, IV Titration 1490 Amount Cefepime 2 gm In Sodium 200 Chloride 0.9% 100 ml @ 25 mls/hr IVPB Q8HR JUDIT Rx# :[id number] Sodium Chloride 0.9% 1, 1040 000 ml @ 130 mls/hr IV . Q7H42M JUDIT Rx#:[id number] Vancomycin 1,250 mg In 250 Sodium Chloride 0.9% 250 ml @ 125 mls/hr IVPB Q12H JUDIT Rx#:[id number] Oral 360 240 Other: Voiding Method Toilet Toilet Toilet Urinal Urinal Urinal # Voids 3 - Constitutional General appearance: Present: no acute distress - EENT Eyes: Present: EOMI, PERRLA ENT: Present: hearing grossly normal, normal oropharynx - Respiratory Respiratory: right: diminished - Cardiovascular Rhythm: regular Heart sounds: normal: S1, S2 - Gastrointestinal General gastrointestinal: Present: normal bowel sounds, soft - Integumentary Integumentary: Present: normal - Neurologic Neurologic: Present: CNII-XII intact - Musculoskeletal Musculoskeletal: Present: strength equal bilaterally - Psychiatric Psychiatric: Present: A&O x's 3, appropriate affect - Labs CBC & Chem 7: 10/31/20 04:58 10/31/20 04:58 Labs: Abnormal Lab Results - Last 24 Hours (Table) 10/31/20 10/31/20 Range/Units 04:58 04:58 WBC 1.1 L* (3.8-10.6) k/uL RBC 3.52 L (4.30-5.90) m/uL Hgb 8.9 L D (13.0-17.5) gm/dL Hct 28.1 L (39.0-53.0) % MCV 79.8 L (80.0-100.0) fL RDW 17.5 H (11.5-15.5) % Blast Cells % 4 H* % Neutrophils # (Manual) 0.10 L* (1.3-7.7) k/uL Lymphocytes # (Manual) 0.44 L (1.0-4.8) k/uL Blast Cells # (Man) 0.04 H (0) k/uL Sodium 132 L (137-145) mmol/L Glucose 110 H (74-99) mg/dL Calcium 8.1 L (8.4-10.2) mg/dL Microbiology - Last 24 Hours (Table) 10/30/20 20:30 Gram Stain - Preliminary Sputum Sputum Culture - Preliminary 10/29/20 16:38 Blood Culture - Preliminary Blood No Growth after 24 hours 10/29/20 16:27 Blood Culture - Preliminary Blood No Growth after 24 hours Assessment and Plan (1) Neutropenic fever Narrative/Plan: the patient has been mostly afebrile over the last 24 hours. MAXIMUM TEMPERATURE yesterday was 100.9. WBC appears to be recovering, and was 1.1 today. Immature neutrophil forms are seen, consistent with impending recovery. - cultures are negative so far - Continue broad-spectrum antibiotics, and G-CSF - Relieving patient remains afebrile over 24 hours and cultures are negative, he can be discharged on oral antibiotics once ANC is greater than 1000. Current Visit: Yes Status: Acute Priority: High Code(s): D70.9 - NEUTROPENIA, UNSPECIFIED; R50.81 - FEVER PRESENTING WITH CONDITIONS CLASSIFIED E LSEWHERE SNOMED Code(s): 734741111 (2) Lung cancer Narrative/Plan: the patient will resume treatment on schedule as an outpatient. He will now receive PEG-G-CSF routinely with chemotherapy going forward Current Visit: Yes Status: Acute Code(s): C34.90 - MALIGNANT NEOPLASM OF UNSP PART OF UNSP BRONCHUS OR LUNG SNOMED Code(s): 037984636
[2020-11-01] MEDS: SALT AND SODA MOUTHWASH 1,000 ML PO SCH ×3 (00:46→13:09)
[2020-11-01 05:39] LABS: Anisocytosis Slight; HCT 27.4 % (39.0-53.0); HGB 9.1 gm/dL (13.0-17.5); MCH 26.3 pg (25.0-35.0); MCHC 33.4 g/dL (31.0-37.0); MCV 78.7 fL (80.0-100.0); Mean Platelet Volume 7.4; Microcytosis Slight; Platelet Count 241 k/uL (150-450); RBC 3.48 m/uL (4.30-5.90); RDW 17.4 % (11.5-15.5)
[2020-11-01] MEDS: VANCOMYCIN 1,250 MG in SODIUM CHLORIDE 0.9% 250 ML IVPB SCH (05:40)
[2020-11-01 05:41] LABS: African American GFR (CKD) >90 (>60 ml/min/1.73 sqM); Anion Gap 7 mmol/L; Blood Urea Nitrogen 8 mg/dL (9-20); Calcium 8.5 mg/dL (8.4-10.2); Carbon Dioxide 26 mmol/L (22-30); Chloride 103 mmol/L (98-107); Glucose 111 mg/dL (74-99); Non-African American GFR(CKD) 83 (>60 ml/min/1.73 sqM); Potassium 4.3 mmol/L (3.5-5.1); Sodium 136 mmol/L (137-145)
[2020-11-01 05:45] VITALS: BP 114/71; RESP 18; TEMP 98.4
[2020-11-01 06:07] LABS: Band Neutrophils % 34 %; Metamyelocytes # (M) 0.06 k/uL (0); Metamyelocytes % 2 %; Myelocytes # (M) 0.06 k/uL (0); Myelocytes % 2 %; Neutrophils % (M) 20 %
[2020-11-01 06:08] LABS: Blast Cells # (M) 0.24 k/uL (0); Lymphocytes # (M) 0.42 k/uL (1.0-4.8); Nucleated Red Blood Cells 2 /100 WBC (0-0); Total Cells Counted 100
[2020-11-01] MEDS: BUDESONIDE 0.5 MG/2 ML NEBU INHALATION SCH (07:27)
[2020-11-01] MEDS: IPRATROPIUM-ALBUTEROL 3 ML NEB INHALATION SCH ×2 (07:27→11:02)
[2020-11-01] MEDS ORDERED: PANTOPRAZOLE 40 MG TABLET PO SCH (07:30)
[2020-11-01] MEDS: SODIUM CHLORIDE 0.9% 1,000 ML IV SCH (07:58)
[2020-11-01] MEDS: guaiFENesin 600 MG TABLET.ER PO SCH ×2 (07:59→13:08)
[2020-11-01] MEDS: CEFEPIME 2 GM in SODIUM CHLORIDE 0.9% 100 ML IVPB SCH (07:59)
[2020-11-01] MEDS: ENOXAPARIN 40 MG/0.4 ML SYRINGE SQ SCH (07:59)
[2020-11-01] MEDS: FILGRASTIM-SNDZ 480 MCG/0.8 ML SYRINGE SQ SCH (08:09)
[2020-11-01 11:11] VITALS: PULSE 103
--- NOTE | 2020-11-01 12:51 | P.DS ---
Providers Date of admission: 10/29/20 18:00 Expected date of discharge: 11/01/20 Attending physician: Darien Castaneda Consults: 10/29/20 17:59 Consult Physician Urgent Consulting Provider: Carmine August Consult Reason/Comments: Neutropenic fever Do you want consulting provider notified?: Yes 10/30/20 17:44 Consult Physician Routine Consulting Provider: Edwardo Connolly Consult Reason/Comments: Lung cancer pneumonia Do you want consulting provider notified?: Yes Primary care physician: Bright Martínez [facility] Course: Chief Complaint: Fever History of presenting complaint: This is a pleasant 55-year-old patient of Dr. Mak Martínez. Also being followed by oncologist Dr. August. As per oncology notes: Mr. Skelton is a pleasant pt of Dr. August, initially seen in consult at [facility] on 08/08/15 when he presented with mid chest pain, worsened with inspiration, progressive over 2 day, SOB on exertion since late 05/04. Chest CT revealed a large mass occupying about the upper 2/3 of the right lung field. He had a bronchoscopic biopsy, positive for malignancy. CT head was negative. Staging PET revealed uptake in the mass, but not elsewhere. The pathology, after consultation at the [facility], was read as small cell llung cancer. He was seen for his 1st OV on 08/21/15. He was started on MAP CLERK 16 and Cisplatin for 2 cycles for cytoreduction then addition of XRT. Completed 4 cycles of chemo by 11/06/15 and RT around 10/30/15. Treatment f/u CT showed a very good partial radiologic response. Prophylactic cranial irradiation 04/06/16. He was seen back at his own request on 04/08/16 as he had notice a tender lump under his rt nipple 2 days prior. US guided biopsy on 04/13/16, revealing benign gynocomastia. He completed PCI on 04/19/16. He missed appts after 05/05 due to insurance issues. He re-established f/u in 10/04. CT 07/08 showed possible increase in size of the RUL opacity. He was seen by Rad Onc and PET ordered. This showed peripheral rim uptake with central necrosis, with uptake less then prior study. It could not be determined if this represented progression vs scarring with breakdown and residual inflammation. He was thus continued on observation. PET 01/05 showed slight increase in size of the RUL opacity, but again peripheral uptake only, with actually decreased SUV. Repeat CT scan 04/07, which was personally reviewed by Radiation Oncology and was felt to show minimal, if any, change. Continued observation was recommended. Did well until scan 10/07 showed development of a cavitary lesion in the right upper lobe with an air-fluid leve l. Scans were reviewed with Radiation Oncology, and Pulmonary medicine. It was felt that this most likely represented an abscess with cavity due to breakdown of previously treated tissue. He was treated with antibiotics for several weeks. CT 08/10 appeared to show progression, with increasing density in the right mid to upper lung, as well as nodules in both lungs. 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 PET scan showed uptake in the right lung mass, as well as infrahilar lymph nodes, right lung and left lung nodules. There was also low level uptake in the right vocal cord and oropharynx which was felt to be nonspecific. Started MAP CLERK-16, carboplatin, and tecentriq on 10/14/20 and is status post 1 cycle. He was in office for ff/u and reported at least 3 episodes of fever with chills in the previous 24 hours, as high as 101.5 on 10/28/20. He tachycardic with an ANC of 900. Sent to hospital for neutropenic fever. Additionally: Patient has a cough. In addition sputum. Appetite is okay. No chills. Bowel movement frequency variable. Has been having wheezing. Admitted with pneumonia, COPD exacerbation, bicytopenia from chemotherapy. Started on IV cefepime, G-CSF, bronchitis steroids. Patient responded well. Patient seen by Dr. August from oncology Today: Laying in down. Comfortable. Oral intake good. Breathing improved. No further fever. Neutrophils have increased satisfactorily. Consultation: Dr. august from oncology Past medical history to include: Lung cancer, nicotine dependent Social history: Lives alone. 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 No alcohol. Family history: Patient is adopted Physical examination: VITAL SIGNS: 98.4, 97, 18, 140/71, 96% room air GENERAL: Laying in bed, comfortable EYES: Pupils equal. Conjunctiva normal. HEENT: External appearance of nose and ears normal, oral cavity grossly normal. NECK: JVD not raised; masses not palpable. HEART: First and second heart sounds are normal; no edema. LUNGS: Respiratory rate normal; decreased breath sounds. ABDOMEN: Soft, nontender, liver spleen not palpable, no masses palpable. PSYCH: Alert and oriented x3; mood and affect normal. INVESTIGATIONS, reviewed in the clinical context: November 01: WBC 3 hemoglobin 9.1 platelets 241 neutrophils 1.6 October 31: WBC 1.1 hemoglobin 8.9 platelets 181 potassium 4.3 creatinine 1.16 sodium 132 WBC 0.8 hemoglobin 10.9 platelets 1544.7 creatinine 1.3 to Lactic acid 2.4 UA negative for nitrites and leukoesterase Coronavirus [PCR]-not detected EKG tracing personally reviewed by me-normal sinus rhythm, sinus tachycardia, PVC Chest x-ray film personally reviewed by me-trachea pulled to the right. consolidation. Possible infiltrate Assessment and plan: -Possible pneumonia, suspect gram-negative organism On IV cefepime, vancomycin. 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 Inhaled steroids -Bicytopenia from chemotherapy-improved Started on G-CSF. Follow labs -Acute kidney injury, likely from ATN-improved IV fluids. Follow BMP -Mild hyponatremia-improved Encourage oral intake. Follow labs Disposition: Home Plan - Discharge Summary Discharge Rx Participant: No New Discharge Prescriptions: New Ipratropium/Albuterol Sulfate [Combivent Respimat Inhaler] 1 puff INHALATION QID #1 inhaler Levofloxacin [Levaquin] 750 mg PO DAILY 1 Days #7 tab Continue Fluticasone Propionate [Flovent Hfa 220 mcg] 1 puff INHALATION RT-BID Albuterol Sulfate [Ventolin HFA] 1 puff INHALATION RT-Q4H PRN PRN Reason: Shortness Of Breath Discharge Medication List Albuterol Sulfate [Ventolin HFA] 1 puff INHALATION RT-Q4H PRN 10/29/20 [History] Fluticasone Propionate [Flovent Hfa 220 mcg] 1 puff INHALATION RT-BID 10/29/20 [History] Ipratropium/Albuterol Sulfate [Combivent Respimat Inhaler] 1 puff INHALATION QID #1 inhaler 11/01/20 [Rx] Levofloxacin [Levaquin] 750 mg PO DAILY 1 Days #7 tab 11/01/20 [Rx] Follow up Appointment(s)/Referral(s): Carmine August MD [STAFF PHYSICIAN] - 11/05/20 10:00 am (This is a chemo appt, please keep for now) Bright Martínez MD [Primary Care Provider] - 1-2 days Edwardo Connolly MD [STAFF PHYSICIAN] - 1 Week Patient Instructions/Handouts: Levofloxacin (By mouth), Ipratropium/Albuterol (By breathing), Complete Blood Count (GEN), Neutropenia (DC) Activity/Diet/Wound Care/Special Instructions: cbc - 5 days
[2020-11-02] MEDS ORDERED: VANCOMYCIN TROUGH DUE 1 EACH MISC MISCELLANE ONE (05:00)
== END 2020-11-01 14:00 | disposition home or self-care (01) | DRG 177 ==
LOC: EC 15:49 → 5NMEDONC 18:00
PROVIDERS: ADMIT Hospitalist; ATTEND Hospitalist
DX: J15.6 Pneumonia due to other Gram-negative bacteria (principal); N17.0 Acute kidney failure with tubular necrosis; E87.1 Hypo-osmolality and hyponatremia; J44.0 Chronic obstructive pulmonary disease with (acute) lower respiratory infection; J44.1 Chronic obstructive pulmonary disease with (acute) exacerbation; C34.91 Malignant neoplasm of unspecified part of right bronchus or lung; Z20.822 Contact with and (suspected) exposure to COVID-19; D70.3 Neutropenia due to infection; R50.81 Fever presenting with conditions classified elsewhere; T45.1X5A Adverse effect of antineoplastic and immunosuppressive drugs, initial encounter; I49.3 Ventricular premature depolarization; R09.02 Hypoxemia; F17.200 Nicotine dependence, unspecified, uncomplicated; Z79.51 Long term (current) use of inhaled steroids; Z87.19 Personal history of other diseases of the digestive system; Z98.890 Other specified postprocedural states; Z60.2 Problems related to living alone
CPT/HCPCS: 36415; 71045; 80048; 80053; 80202; 81001; 82533; 83605; 84439; 84443; 84481; 85025; 85610; 85730; 87040; 87070; 87205; 87635; 93005; 94640; 96365; 99285

== ENCOUNTER → 2022-06-29 | Outpatient (CLI) | payer MEDICARE, OTHER ==
[2022-06-29 10:25] LABS: African American GFR (CKD) >90 (>60 ml/min/1.73 sqM); Blood Urea Nitrogen 8 mg/dL (9-20); Non-African American GFR(CKD) >90 (>60 ml/min/1.73 sqM)
--- NOTE | 2022-06-29 12:34 | CT ---
EXAMINATION TYPE: CT ChestAbdPelvis w con CT DLP: 1363 mGycm, Automated exposure control for dose reduction was used. DATE OF EXAM: 06/29/2022 11:48 AM COMPARISON: PET CT 09/19/20 CLINICAL INDICATION:Male, 56 years old with history of C34.11 MALIGNANT NEOPLASM OF UPPER LOBE, RIGHT BRO; PHH, Malignant neoplasm of upper lobe, right bronchus Technique: Multiple axial images of the chest, abdomen, and pelvis were obtained following the intrav enous administration of 70 mL Isovue-300. Oral contrast was administered. Two-dimensional coronal and sagittal reconstructions were obtained. Findings: CHEST: LUNGS/ PLEURA: No pneumothorax or pleural effusion. Redemonstration of right lung mass that was FDG a vid on prior PET/CT measuring 9.1 x 3.0 cm with central hypoattenuation and gas likely representing n ecrosis (series 3, 36). Peripherally enhancing collection within the right apex measures 5.6 x 3.6 cm with gas now not visualized (series 3, image 20). Increased size of right lower lobe heterogenous ma sses measuring 5.4 x 2.7 cm and 5.7 x 3.3 cm(series 3, image 43 and 42). Increased size of left midlu ng heterogenous mass measuring 6.2 x 4.0 cm (series 3, image 41). Additional inferior mass essentiall y measuring up to 3.7 cm. Left lower lobe new nodule measuring 1.1 cm (series 4, image 46). AIRWAY: There are secretions are demonstrated within the bridget extending into the right mainstem bro nchus and its branches.. HEART: Size within normal limits. No pericardial effusion. MEDIASTINUM: Shifting of the mediastinum to the right due to right lung volume loss. Enlarged prevasc ular space lymph node measuring 3.2 x 1.2 cm. VASCULATURE: No aortic aneurysm. MUSCULOSKELETAL: No acute osseous abnormalities. No aggressive osseous lesion. SOFT TISSUES/LYMPH NODES: No axillary adenopathy. Bilateral flame-shaped gynecomastia. LOWER NECK: Marked right supraclavicular lymph node measuring 1.6 cm short axis (series 3, 15). ABDOMEN: ABDOMEN LIVER: Unremarkable GALLBLADDER AND BILE DUCTS: Unremarkable. PANCREAS: Unremarkable. SPLEEN: Unremarkable. ADRENAL GLANDS: Increased size of left adrenal gland nodule measuring up to 2.6 cm, previously 1.6 cm . KIDNEYS AND URETERS: No evidence of hydronephrosis or renal calculus. PELVIS BLADDER: Underdistended, limiting evaluation. REPRODUCTIVE: Prostate is enlarged in size measuring 5.4 cm in transverse dimension. ABDOMEN & PELVIS STOMACH AND BOWEL: Stomach and duodenum are unremarkable.Scattered distal colonic diverticulosis with out evidence for acute diverticulitis. No evidence of bowel obstruction. PERITONEUM: No evidence of pneumoperitoneum or free fluid. VASCULATURE: Moderate atherosclerotic calcifications are present throughout the abdominal aorta and i ts branches. No abdominal aortic aneurysm. MUSCULOSKELETAL: No acute osseous abnormalities . No aggressive osseous lesion. LYMPH NODES: Mild increased size of paracaval lymph node measuring 7 mm short axis (series 3, image 7 7), previously 4 mm short axis. SOFT TISSUE/ABDOMINAL WALL: Small fat filled umbilical hernia. IMPRESSION: 1. Redemonstration of right lung mass with increased size of right lung and left midlung masses/meta stasis with new left lower lobe nodule and increased mediastinal adenopathy. Findings are concerning for progression of disease. 2. Stable collection within the right lung apex without gas. 3. Enlarged right supraclavicular lymph node concerning for metastasis. 4. Increased size of left adrenal gland nodule measuring 2.6 cm, previously 1.6 cm. This raises conc francesca for metastasis. Consider further evaluation PET/CT. 5. Increased size of paracaval lymph node measuring 7 mm short axis, cruciform lower thorax as. This raises concern for metastasis. This can be further evaluated on PET/CT.
== END | disposition home or self-care (01) ==
LOC: RADCTMAIN 09:25
PROVIDERS: ATTEND Internal Medicine Hematology & Oncology
DX: C34.11 Malignant neoplasm of upper lobe, right bronchus or lung (principal); R91.8 Other nonspecific abnormal finding of lung field; R59.0 Localized enlarged lymph nodes
CPT/HCPCS: 82565; 84520; 71260; 74177; 36415; Q9967